=== PATIENT | male | born 1955 | race Caucasian/White ===

== ENCOUNTER → 2018-03-04 11:33 | Outpatient (CLI) | payer BC, SELFPAY ==
[2018-03-05 08:08] LABS: Testosterone,Total 581 ng/dL (264-916)
== END ==
PROVIDERS: Visit Provider Internal Medicine Cardiovascular Disease
DX: R53.83 Other fatigue (principal); I10 Essential (primary) hypertension
CPT/HCPCS: 36415; 84403; 84443

== ENCOUNTER → 2020-04-08 08:18 | Outpatient (CLI) | payer BC, SELFPAY ==
[2020-04-08 08:44] LABS: Basophils % 0.6 % (0.1-2.0); Eosinophils # 0.1 K/mm3 (0.0-0.4); Hemoglobin 15.3 g/dL (14.1-18.0); Lymphocytes # 1.7 K/mm3 (0.7-4.5); Lymphocytes % 25.8 % (10-50); Mean Corpuscular HGB Conc 34.8 g/dL (31.8-35.4); Mean Corpuscular Hemoglobin 30.9 pg (27.0-31.2); Mean Corpuscular Volume 88.8 fl (80-94); Mean Platelet Volume 8.2 fl (7.4-10.4); Monocytes # 0.4 K/mm3 (0.1-1.0); Monocytes % 6.4 % (1.7-9.3); Neutrophils # 4.2 K/mm3 (1.8-7.8); Neutrophils % 65.2 % (37.0-80.0); Platelet Count 172 K/mm3 (142-424); Red Blood Count 4.95 M/mm3 (4.60-6.20); Red Cell Distribution Width 12.7 % (11.5-17.5); White Blood Count 6.5 K/mm3 (4.8-10.8)
[2020-04-08 09:39] LABS: Alanine Aminotransferase 49 U/L (12-78); Albumin Level 4.3 g/dl (3.5-5.0); Albumin/Globulin Ratio 1.7 (1.1-1.8); Alkaline Phosphatase 112 U/L (38-126); Anion Gap 14.2 mEq/L (5-15); Aspartate Amino Transferase 45 U/L (17-59); Bilirubin,Total 1.9 mg/dl (0.2-1.3); Blood Urea Nitrogen 13 mg/dl (9-20); Calcium 9.5 mg/dl (8.4-10.2); Carbon Dioxide 29 mmol/L (22.0-30.0); Chloride 100 mmol/L (98-107); Chol/HDL Ratio 3.6 (1-3.5); Cholesterol 111 mg/dl (140-200); Estimated Glomerular Filt Rate 85 ml/min (>60); GFR (African American) 103 ML/MIN (>60); Globulin 2.6 g/dL (1.3-3.2); Glucose 187 mg/dl (74-100); HDL Cholesterol 31 mg/dl (40-60); Potassium 4.2 mmoL/L (3.5-5.1); Sodium 139 mmol/L (136-145); Total Protein,Serum 6.9 g/dl (6.3-8.2); Triglycerides 139 mg/dl (30-150); VLDL Cholesterol 28 mg/dL (0-40)
[2020-04-08 09:47] LABS: Hemoglobin A1C 8.4 % (4.0-6.0)
[2020-04-08 09:50] LABS: Direct LDL Cholesterol 66.19 mg/dL (100-129)
[2020-04-08 10:09] LABS: Thyroid Stimulating Hormone 1.79 uIU/mL (0.465-4.68)
== END ==
PROVIDERS: Visit Provider Internal Medicine Adolescent Medicine
DX: E11.9 Type 2 diabetes mellitus without complications (principal); E78.5 Hyperlipidemia, unspecified; E03.9 Hypothyroidism, unspecified
CPT/HCPCS: 36415; 80053; 80061; 83036; 84443; 85025

== ENCOUNTER → 2020-05-04 08:47 | Outpatient (CLI) | payer BC, SELFPAY ==
--- NOTE | 2020-05-04 | CA_ITS ---
APPROVED REPORT Technologist: Lucia Ambrose, Ht: 5 ft 8 in Wt: 217 lbs BSA: 2.12 m2 HR: 63 bpm BP: 145/73 mmHg Medical History Medical History: Diabetic ??? Insulin, Hyperlipidemia, HTN Medications: Metoprolol,,,,, Asa,,,,, Metformin,,,,, Lipitor,,,,, Ventolin,,,,, Omepazole,,,,, IsosoBIDEMONO ER,,,,, Cardiac Risk Factors: HTN, Hyperlipidemia, Diabetes (insulin) Stress Test Details Test: Олег HR Resting HR: 69 bpm Max Heart Rate (APMHR): 156 bpm Max HR Achieved: 115 bpm Target HR (85% APMHR): 132 bpm % of APMHR: 73 Recovery HR: 66 bpm BP Resting BP: 145/73 mmHg Max BP: 206/70 mmHg Recovery BP: 206.0/70.0 mmHg ECG Clinical Exercise duration: 06:20 min Highest Stage Achieved: Exercise capacity: 7.0 METs Stress ECG Conclusion Exercised 6:20 on Олег Protocol stopped due to CP and SOB, fatigue. Chest tightness/squeezing, classic for angina, that resolved with in 5 minutes after stopping exercise. Moderately frequent PAC's, occasional PVC's. Exaggeration of baseline T wave abnormalities in leads V1, V2, aVL. In recovery there is 1mm slightly downsloping ST depression in V3 and 0.5mm in V4. (+) GXT by signs and symptoms with equivocal EKG changes. GXT only no imiaging. Electronically signed by : Guido Beltrán, 05/06/2020 07:03:46
== END ==
PROVIDERS: PCP Internal Medicine Adolescent Medicine; Visit Provider Internal Medicine Adolescent Medicine
DX: I25.10 Atherosclerotic heart disease of native coronary artery without angina pectoris (principal)
CPT/HCPCS: 93017

== ENCOUNTER 2020-06-12 19:00 | Observation (INO) | payer BC, SELFPAY ==
[2020-06-12] VITALS (26 sets, daily range): BP systolic 116–152; BP diastolic 49–75; PULSE 47–66; RESP 16–19; TEMP 36.4–36.8; O2SAT 86–98; BMI 32.5; BMI 32.3
--- NOTE | 2020-06-12 | IR_ITS ---
APPROVED REPORT Patient Location: [facility] Director: HUBERT Roy RT (R) PROCEDURES Left femoral arterial access Catheter placement in the right peroneal artery Right peroneal artery selective angiogram Thrombectomy to the right peroneal artery Catheter placement to the anterior tibialis artery Right anterior tibialis artery selective angiogram Thrombectomy to the right anterior tibialis artery Thrombectomy to the posterior tibialis artery Catheter placement in the right popliteal artery Right popliteal artery selective angiogram Right popliteal artery thrombectomy INDICATION Acute thrombus to the right popliteal artery right anterior tibialis artery right posterior tibialis artery and right peroneal artery, Acute leg ischemia Informed consent was obtained prior to the procedure. COMPLICATIONS none Estimated Blood Loss: less than 10 mls TECHNIQUE 1% lidocaine used to anesthetize the left femoral groin. The left femoral artery was accessed via the Seldinger technique. A 4 Egyptian sheath was placed in the left femoral artery and a MONGE catheter was used to intubate the right common iliac artery. The catheter was advanced under fluoroscopic guidance with a wire and selective popliteal artery angiography demonstrated acute thrombosis. Therapeutic heparin was administered and the catheter was exchanged and sheath was exchanged for a 6 Egyptian long destination sheath. A 300 cm 014 wire was placed into the peroneal artery and a CAT 6 was used to remove copious hard blackish red thrombus on several passes. Eventually this was advanced into the posterior tibialis artery where thrombus this was also aspirated. The wire was placed into the anterior tibialis artery where a large thrombus was aspirated as well. Intra popliteal heparin was administered along with 10 cc of Integrilin. 2 different aliquots of 600 mcg nitroglycerin were administered into the anterior tibialis artery and the peroneal artery. After achieving wide patency of all 3 vessels with excellent runoff the apparatus was removed the groin was reprepped gloves were changed sheath was removed good hemostasis was achieved using Perclose patient was transferred to the postop holding in stable condition IMPRESSION Acute thrombosis of the right popliteal artery right anterior tibialis artery right posterior tibialis artery and right peroneal artery Successful thrombectomy of the right popliteal artery right anterior tibialis artery right posterior tibialis artery and right peroneal artery restoring normal antegrade flow to the right foot PLAN 1. Heparin drip overnight 2. Plavix 300 mg now +75 mg daily 3. Risk factor modification for atherosclerotic disease 4. LDL less than 75 Electronically signed by : Jere Singh, 06/12/2020 17:41:17
--- NOTE | 2020-06-12 07:07 | IR_ITS ---
APPROVED REPORT PROCEDURES Left heart catheterization Left ventriculogram Selective coronary angiogram Selective engage in left internal mammary artery with angiography Selective engagement of the saphenous vein graft to the diagonal artery Selective engagement of the saphenous vein graft to the circumflex artery Selective engagement of the saphenous vein graft to the posterior descending artery INDICATION Abnormal stress test, Coronary artery disease, History of coronary bypass surgery Informed consent was obtained prior to the procedure. COMPLICATIONS None Estimated Blood Loss: less than 10ml TECHNIQUE One percent lidocaine used to anesthetize the right groin. The right femoral artery was accessed via the Seldinger technique and a 5 Armenian sheath was placed in the right femoral artery. A JL 4, JR4 catheter were used to perform left heart catheterization, left ventriculogram selective coronary angiography as well as selective engagement of the 2 vein grafts and the left internal mammary artery. At the end of the procedure the patient was transferred to the postop holding area in stable condition for sheath removal. ANGIOGRAPHIC RESULTS The left main artery Is a small vessel with mild 10 to 20% distal stenosis The left anterior descending artery Is proximally occluded The circumflex artery Is proximally occluded The right coronary artery Is a large dominant vessel which is widely patent. Proximally there are 10% stenoses with a mid vessel 10 to 20% stenosis followed by distal 20 and 30% stenoses. The proximal posterior descending artery is occluded The CHE ventriculogram reveals Preserved 60% The left ventricular end-diastolic pressure 10 mmHg Left internal mammary artery is widely patent to a small LAD Saphenous vein graft to the first diagonal artery is widely patent. The first diagonal artery is a small vessel Saphenous vein graft to the circumflex artery has a proximal smooth 20 to 30% stenosis. The circumflex artery is a small vessel Saphenous vein graft to the posterior descending artery is widely patent. There is no retrograde filling of the [place] right coronary artery due to the proximal PDA being occluded IMPRESSION Adequate four-vessel coronary revascularization as described above Preserved ejection fraction Normal left ventricular end-diastolic pressure PLAN 1. Continue medical management Electronically signed by : Jere Singh, 06/12/2020 12:00:13
--- NOTE | 2020-06-12 10:05 | CA_ITS ---
APPROVED REPORT EXAM: Comprehensive 2D, Doppler, and color-flow Echocardiogram Skip Miner Blasting: Flor Omalley RVT Ht: 5 ft 9 in Wt: 220lbs BSA: 2.15 BP: 153/61 mmHg Indications: angina,abn stress,cad,cabg,htn,hld,dm,abn ekg,golden,ex smoker Echo Enhancing Agent Indication: Endocardial border delineation Agent(s) / Amount(s) Used: Definity 2 cc 2D Dimensions LVOT 2.30 cm (M/F) 1.5-2.5 M-Mode Dimensions RVDd 3.62 cm (0.9-2.6) LVDd 5.59 cm (3.5-5.7) LVDs 3.94 cm (3.5-5.7) IVSd 1.39 cm (0.6-1.1) PWd 0.58 cm (0.6-1.1) EF (Teich) 55.90% FS 29.50% EDV (Teich) 153.00 mL ESV (Teich) 67.50 mL LV Diastology E/A Ratio 0.90 Mitral Valve MV A Velocity 76.00 (40-130 cm/s) Left Ventricle Technically difficult study because of the patient factors and poor acoustic windows, Definity contrast was utilized to delineate the endocardial surfaces. Left atrium is mildly enlarged, left ventricle is normal size, mild concentric left ventricular hypertrophy, visually estimated ejection fraction 55% with no regional wall motion abnormality, diastolic parameters are inconclusive. Definity contrast was utilized to delineate the endocardial surfaces, there is no left ventricular thrombus seen. Right Ventricle Right atrium and right ventricle are mildly enlarged with normal contractility. Aortic Valve Aortic valve is thickened and calcified leaflet chordae display good mobility, there is no aortic stenosis or aortic insufficiency. Mitral Valve Mitral valve leaflets are minimally thickened, there is mild mitral regurgitation. Tricuspid Valve Tricuspid valve grossly normal, there is mild tricuspid regurgitation, tricuspid regurgitation jet velocity is inadequate for calculation of the right ventricular systolic pressure. Pulmonic Valve Pulmonic valve is poorly visualized. Great Vessels Aortic root is normal size. Pericardium No significant pericardial effusion noted. Conclusion 1. Mild biatrial enlargement, normal left ventricular size, mild concentric left ventricular hypertrophy, visually estimated ejection fraction 55% with no regional wall motion abnormality, diastolic parameters are inconclusive, Definity contrast was utilized to delineate the endocardial surfaces, there is no left ventricular thrombus seen. 2. Mildly enlarged right ventricle with normal contractility. 3. Mild mitral and tricuspid regurgitation. 4. No significant pericardial effusion noted. Electronically signed by : Oliver Mccracken, 06/12/2020 21:15:41
--- NOTE | 2020-06-12 10:05 | CA_ITS ---
APPROVED REPORT Magazine Keeper: Flor Omalley RVT Laterality: Bilateral Study Quality: Good Indications: bilateral carotid bruits Risk Factors Hypertension: Hyperlipidemia Diabetes Smoking Doppler Spectral Velocity Analysis ECA (R) 166.50/6.20 cm/s ECA (L) 130.40/8.80 cm/s dICA (R) 94.20/22.60 cm/s dICA (L) 86.90/20.20 cm/s Basim (R) 100.10/13.70 cm/s Basim (L) 93.60/12.70 cm/s pICA (R) 83.70/14.10 cm/s pICA (L) 65.90/8.20 cm/s dCCA (R) 60.30/9.30 cm/s dCCA (L) 88.40/7.50 cm/s pCCA (R) 93.30/10.20 cm/s pCCA (L) 105.60/10.50 cm/s Vert (R) 43.30/7.10 cm/s Vert (L) 39.20/8.80 cm/s ICA/CCA 1.66 ICA/CCA 1.06 Findings Study suggests less than 20% stenosis of the right internal cartoid artery. Study suggests 20-49% stenosis of the left internal cartoid artery. Antegrade flow seen bilateral vertebral arteries. Conclusion Study suggests less than 20% stenosis of the right internal cartoid artery. Study suggests 20-49% stenosis of the left internal cartoid artery. Antegrade flow seen bilateral vertebral arteries. Electronically signed by : Bi Farooq MD 06/12/2020 17:16:49
[2020-06-12 10:14] LABS: Basophils % 0.6 % (0.1-2.0); Eosinophils # 0.2 K/mm3 (0.0-0.4); Eosinophils % 2.8 % (0.1-12.0); Hematocrit 41.2 % (42.0-52.0); Hemoglobin 14.3 g/dL (14.1-18.0); Lymphocytes % 27.5 % (10-50); Mean Corpuscular HGB Conc 34.9 g/dL (31.8-35.4); Mean Corpuscular Hemoglobin 31.2 pg (27.0-31.2); Mean Corpuscular Volume 89.5 fl (80-94); Mean Platelet Volume 8.5 fl (7.4-10.4); Monocytes # 0.4 K/mm3 (0.1-1.0); Neutrophils # 4.6 K/mm3 (1.8-7.8); Platelet Count 190 K/mm3 (142-424); Red Cell Distribution Width 12.8 % (11.5-17.5); White Blood Count 7.3 K/mm3 (4.8-10.8)
[2020-06-12 10:23] LABS: Anion Gap 12.6 mEq/L (5-15); Blood Urea Nitrogen 14 mg/dl (9-20); Carbon Dioxide 29 mmol/L (22.0-30.0); Chloride 102 mmol/L (98-107); Creatinine Clearance Estimated 105 mL/min (50-200); Estimated Glomerular Filt Rate 85 ml/min (>60); GFR (African American) 103 ML/MIN (>60); Glucose 152 mg/dl (74-100); Potassium 3.6 mmoL/L (3.5-5.1); Sodium 140 mmol/L (136-145)
[2020-06-12 10:49] LABS: Coronavirus 19 IgG Antibody Negative (Negative); Coronavirus 19 IgM Antibody Negative (Negative)
--- NOTE | 2020-06-12 15:48 | SUR.PHASEII ---
Patient was being prepped for discharge at approximately 1500. Per protocol, patient was walked before discharge to check for any issues with femoral access post procedure. Patient tolerated walking well, however, he began complaining of severe leg pain in right leg. Nurse checked for dp pulse and was not able to palpate, used doppler for further verification, still not able to locate pulse. Asked to assess patient, at which time it was determined to check patient for blockages via angiogram.
[2020-06-12 18:20] LABS: CATHL Activated Clotting Time 265 SEC (74-125)
[2020-06-12 18:20] LABS: CATHL Activated Clotting Time > 400 SEC (74-125)
[2020-06-12 18:36] LABS: INR 1.13 (0.9-1.1); Prothrombin Time 12.4 seconds (9.4-11.8)
--- NOTE | 2020-06-12 20:20 | PC.NURSE ---
Heparin gtt discontinued per MD Singh.
--- NOTE | 2020-06-12 20:44 | PC.NURSE ---
WHEN PT ARRIVED TO THE FLOOR 1+ PEDAL PULSES WERE PALPATED BY 2 DIFFERENT RN'S. AROUND 1914 PT STARTED TO COMPLAIN OF DISCOMFORT ON THE BACK OG HIS RT CALF. PT STATED IT FEELS LIKE A REALLY BAD [place] HORSE PT STATED THAT WAS THE PAIN HE HAD BEFORE BUT BEFORE IT WAS THE ENTIRE AREA OF THE RT CALF BUT THIS TIME IT HURTS IN THE ONE AREA ON THE BACK OF THE CALF. PT HAD A SMALL PALPABLE TENDER KNOT NOTED AT THE BACK OF THE CALF. UNABLE TO PALPATE PEDAL PULSES AT THIS TIME. PULSES WERE OBTAINED WITH DOPPLER BUT WERE VERY FAINT. BOTH EXTREMITIES WARM TO TOUCH WITH NO DISCOLORATION. NOTIFIED AND HE STATED TO TURN OFF THE HEPARIN DRIP AND TO CONTINUE MONITORING BLE. STATED PT CAN HAVE MORPHINE FOR PAIN. HEPARIN DRIP WAS TURNED OFF. VSS. BLE ARE STILL WARM. PT WAS MEDICATED WITH MORPHINE FOR THE PAIN. REPORT HAND OFF TO GENESIS LARKIN RN.
[2020-06-13] VITALS (7 sets, daily range): BP systolic 128–158; BP diastolic 66–80; PULSE 50–70; RESP 16–18; TEMP 36.4–36.9; O2SAT 97
--- NOTE | 2020-06-13 | CA_ITS ---
APPROVED REPORT Hhas: MONICA Laterality: Right Indications: Patient had heart cath with cardiac stents 06/12/20. When patient got up to use the restroom he had extreme pain and pallor of the right leg and foot. Patient was emergently taken to director of cath lab and was found have an arterial clot with thrombectomy performed on right CHAR, VALENTINO, ESTATE AGENT, JULIO. Duplex scanning ordered today to confirm flow and waveforms in RLE. 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 Color flow detected in most arterial vessels scanned with waveforms detected and measured with the exception of the distal peroneal artery. No visualization of acute thrombosis seen on todays scan. Conclusion 30-49% stenosis seen in the proximal femoral artery and common femoral artery. Color flow detected in most arterial vessels scanned with waveforms detected and measured with the exception of the distal peroneal artery. No visualization of acute thrombosis seen on todays scan. Electronically signed by : Bi Farooq MD 06/13/2020 17:45:26
--- NOTE | 2020-06-13 05:26 | PC.NURSE ---
Pt is currently resting in bed. Has ambulated to BR x1 this shift. Pt continues to have discomfort to RLE. Pain medication administered per nov x1 this shift. Pt declines any additional medicine this am. Pt describes pain as a stretching or pulling. Pt also states that it will hurt when he tries to stretch his leg or when he moves it up and down. Pedal pulses per doppler. Extremities warm. VS have remained stable. No other concerns at this time. Will continue to monitor.
[2020-06-13 07:00] LABS: Chloride 103 mmol/L (98-107); Sodium 139 mmol/L (136-145)
[2020-06-13 07:03] LABS: Blood Urea Nitrogen 12 mg/dl (9-20)
[2020-06-13 07:04] LABS: Calcium 8.3 mg/dl (8.4-10.2); Carbon Dioxide 32 mmol/L (22.0-30.0); Creatinine Clearance Estimated 105 mL/min (50-200); Estimated Glomerular Filt Rate 75 ml/min (>60); GFR (African American) 91 ML/MIN (>60); Glucose 97 mg/dl (74-100)
--- NOTE | 2020-06-13 07:31 | P.CONPHA_ITS ---
[facility] Pharmacy VTE Monitoring - Patient Demographics Admission date: 06/13/20 Report Date: 06/13/20 Time: 07:31 Allergies/Adverse Reactions: Patient Allergies ibuprofen Allergy (Intermediate, Verified 06/08/20 13:52) I-ITCHING, SKIN TURNS RED Penicillins Allergy (Intermediate, Verified 06/08/20 13:52) I-RASH Height: 1.75 m Weight: 99 kg - VTE Risk Labs: VTE Related Lab Results Hgb 14.3 g/dL (14.1-18.0) 06/12/20 09:55 Hct 40.8 % (42.0-52.0) L 06/13/20 06:13 Plt Count 113 K/mm3 (142-424) L D 06/13/20 06:13 PT 12.4 seconds (9.4-11.8) H 06/12/20 17:38 INR 1.13 (0.9-1.1) H 06/12/20 17:38 APTT 150.0 seconds (23.6-34.0) H* 06/12/20 17:38 BUN 12 mg/dl (9-20) 06/13/20 06:13 Creatinine 1.00 mg/dl (0.66-1.25) 06/13/20 06:13 Estimated Creat Clear 105 mL/min (50-200) 06/13/20 06:13 Was VTE Risk Assessment Performed: Yes VTE Score: 2 VTE Risk Level: Low Risk Clinical Trial Participant: No - Prophylaxis VTE Prophylaxis Ordered?: Yes Types of VTE Prophylaxis: TEDS Knee High Location of Applied Device: Not Applicable
[2020-06-13 07:59] LABS: Hematocrit 35.6 % (42.0-52.0)
[2020-06-13 08:00] LABS: Mean Corpuscular Volume 89.2 fl (80-94); Mean Platelet Volume 8.3 fl (7.4-10.4); Platelet Count 152 K/mm3 (142-424); Red Cell Distribution Width 12.7 % (11.5-17.5)
--- NOTE | 2020-06-13 08:00 | HMH.HP ---
*Admission Date: 06/12/20 *Chief complaint: Right femoral artery thrombus sequela *History of present illness: 64-year-old white male with known coronary disease who presented to the hospital for outpatient left heart catheterization yesterday. This was accomplished by a right femoral approach because of the patient's prior history of bypass, and the procedure was uneventful, please see cardiology notes for details of the results of the catheterization. However, immediately after the procedure when patient got up from the catheterization table to walk around he had intense pain, pallor, pulselessness in the right leg and was immediately taken back to the catheterization suite where he was found to have a fairly large femoral artery thrombus, possibly from pressure held after the initial catheterization stick. This was diagnosed about by left femoral artery catheterization and thrombectomy was done successfully with good flow restored. Patient was given Integrilin and Plavix in the cath suite and transferred to the floor for heparinization overnight. [facility] History I have reviewed the patient's past medical history: Yes Medical History: Reports:: Coronary Artery Disease, Diabetes Mellitus Type 2, Hyperlipidemia, Hypertension Denies:: Cancer, Diabetes Mellitus Type 1, Internal Pacemaker, MRSA, Seizures *Have you ever received a pneumonia vaccine?: No *Have you received a flu vaccine this season?: Yes Other Surgeries: Yes: CABG, Cholecystectomy, Colonoscopy. No: Pacemaker Amputation: No Fractures: No - *Social History Last grade of school completed: High school graduate Smoking Status: Never smoker Alcohol Intake: never Substance Use Type: denies use *Occupational Status:: employed Housing: house Household Members: spouse *Travel in the last 8 weeks: None Family Hx:: No significant family history Review of Systems - Review of Systems Review of systems:: pertinent systems reviewed and negative unless documented below Patient denies cardiac or pulmonary symptoms or GI symptoms. Continues to have pain in the leg especially in the foot, slightly worse than baseline. Meds Home Medications Medication Instructions Recorded Confirmed Type albuterol sulfate 90 mcg/actuation 2 puff INHALATION Q4-6H PRN 06/08/20 06/08/20 History aerosol inhaler aspirin 81 mg tablet,delayed 81 mg PO DAILY 06/08/20 06/08/20 History release atorvastatin 40 mg tablet 40 mg PO QHS 06/08/20 06/08/20 History metformin 1,000 mg tablet 1,000 mg PO BID 06/08/20 06/08/20 History Isosorbide Mononitrate [Isosorbide 120 mg PO DAILY 06/12/20 History Mononitrate ER] Losartan Potassium [Cozaar 25mg 25 mg PO DAILY 06/12/20 History Tablets] Metoprolol Succinate [Metoprolol 50 mg PO DAILY 06/12/20 History Succinate 50mg Tablet*] Pantoprazole Sodium 40 mg PO DAILY 06/12/20 History Allergies Allergy/AdvReac Type Severity Reaction Status Date / Time ibuprofen Allergy Intermediate I-ITCHING, Verified 06/08/20 13:52 SKIN TURNS RED Penicillins Allergy Intermediate I-RASH Verified 06/08/20 13:52 Exam Vital signs and Labs for Last 24 Hours: Temp Pulse Resp BP Pulse Ox 97.6 F 60 16 128/70 97 06/13/20 04:00 06/13/20 04:00 06/13/20 04:00 06/13/20 04:00 06/13/20 04:00 Laboratory Results - last 24 hr 06/12/20 09:55: WBC 7.3, RBC 4.60, Hgb 14.3, Hct 41.2 L, MCV 89.5, MCH 31.2, MCHC 34.9, RDW 12.8, Plt Count 190, MPV 8.5, Neut % (Auto) 63.0, Lymph % (Auto) 27.5, Brown % (Auto) 6.0, Eos % (Auto) 2.8, Baso % (Auto) 0.6, Neut # (Auto) 4.6, Lymph # (Auto) 2.0, Brown # (Auto) 0.4, Eos # (Auto) 0.2, Baso # (Auto) 0.0 06/12/20 09:55: Sodium 140, Potassium 3.6, Chloride 102, Carbon Dioxide 29, Anion Gap 12.6, BUN 14, Creatinine 0.90, Estimated Creat Clear 105, Estimated GFR 85, Est GFR ( Amer) 103, Glucose 152 H, Calcium 9.0 06/12/20 09:55: SARS-CoV-2 IgG Ab (Rapid) Negative, SARS-CoV-2 IgM Ab (Rapid) Negative 06/12/20 16:
[2020-06-13 08:01] LABS: Basophils % 0.5 % (0.1-2.0); Eosinophils % 2.7 % (0.1-12.0); Lymphocytes % 29.9 % (10-50); Monocytes % 8.3 % (1.7-9.3); Neutrophils # 3.3 K/mm3 (1.8-7.8); Neutrophils % 58.6 % (37.0-80.0)
[2020-06-13 08:02] LABS: Eosinophils # 0.2 K/mm3 (0.0-0.4); Lymphocytes # 1.7 K/mm3 (0.7-4.5); Monocytes # 0.5 K/mm3 (0.1-1.0)
[2020-06-13 08:39] LABS: Hemoglobin 12.1 g/dL (14.1-18.0); Mean Corpuscular Hemoglobin 30.3 pg (27.0-31.2); Red Blood Count 3.99 M/mm3 (4.60-6.20); White Blood Count 5.6 K/mm3 (4.8-10.8)
--- NOTE | 2020-06-13 09:42 | PC.NURSE ---
Manual BP in right arm is 158/80. Bilateral pedal and PT pulses palpated manually.
--- NOTE | 2020-06-13 10:36 | HMH.CNCARD ---
History of Present Illness Consult date: 06/13/20 Requesting physician: Guido Beltrán Chief complaint: right leg pain Additional Medical History:: 1. Coronary artery disease A. History of CABG, 2009 B. Abnormal stress test, 06/2020 with reproduction of symptoms C. [facility], 06/12/2020, ANGIOGRAPHIC RESULTS The left main artery Is a small vessel with mild 10 to 20% distal stenosis The left anterior descending artery Is proximally occluded The circumflex artery Is proximally occluded The right coronary artery Is a large dominant vessel which is widely patent. Proximally there are 10% stenoses with a mid vessel 10 to 20% stenosis followed by distal 20 and 30% stenoses. The proximal posterior descending artery is occluded The CHE ventriculogram reveals Preserved 60% The left ventricular end-diastolic pressure 10 mmHg Left internal mammary artery is widely patent to a small LAD Saphenous vein graft to the first diagonal artery is widely patent. The first diagonal artery is a small vessel Saphenous vein graft to the circumflex artery has a proximal smooth 20 to 30% stenosis. The circumflex artery is a small vessel Saphenous vein graft to the posterior descending artery is widely patent. There is no retrograde filling of the [place] right coronary artery due to the proximal PDA being occluded IMPRESSION Adequate four-vessel coronary revascularization as described above Preserved ejection fraction Normal left ventricular end-diastolic pressure PLAN 1. Continue medical management 2. Acute thrombosis of RLE after right femoral access for [facility] A. LE angiogram, 06/12/2020, IMPRESSION Acute thrombosis of the right popliteal artery right anterior tibialis artery right posterior tibialis artery and right peroneal artery Successful thrombectomy of the right popliteal artery right anterior tibialis artery right posterior tibialis artery and right peroneal artery restoring normal antegrade flow to the right foot PLAN 1. Heparin drip overnight 2. Plavix 300 mg now +75 mg daily 3. Risk factor modification for atherosclerotic disease 4. LDL less than 75 Electronically signed by : Jere Singh, 06/12/2020 17:41:17 3. Diabetes mellitus, diagnosed approximately 2015 A. Hemoglobin A1c, 8.4, 2019 4. Remote tobacco use discontinued approximately 2007 5. Hypertension 6. Hyperlipidemia 7. Abnormal EKG with right bundle branch block and left anterior fascicular block, 2019 History of present illness: 64-year-old white male who is here yesterday for an outpatient left heart catheterization via right femoral access was subsequently admitted after developing a right lower extremity thrombus felt related to manual hold of right femoral artery post procedure. Urgent lower extremity angiogram was performed with thrombectomy and zoroastrian of arterial flow noted thereafter. He was given Integrilin, Plavix and heparin overnight. Patient continues to have some right lower extremity discomfort this morning but has appreciable distal pulses that are equal with slight temperature difference in the right foot versus the left. Right and left femoral access sites appear without evidence of bleeding or pseudoaneurysm by palpation. Patient denies any chest pain, pressure or tightness. [facility] History Medical History: Reports:: Coronary Artery Disease, Diabetes Mellitus Type 2, Hyperlipidemia, Hypertension Denies:: Cancer, Diabetes Mellitus Type 1, Internal Pacemaker, MRSA, Seizures *Have you ever received a pneumonia vaccine?: No *Have you received a flu vaccine this season?: Yes Other Surgeries: Yes: CABG, Cholecystectomy, Colonoscopy. No: Pacemaker Amputation: No Fractures: No - *Social History Last grade of school completed: High school graduate Smoking Status: Never smoker Alcohol Intake: never Substance Use Type: denies use *Occupational Status:: employed Housing: house Household Members: spouse *Travel in the
--- NOTE | 2020-06-13 11:34 | PC.NURSE ---
bilateral pedal and PT pulses palpated manually. They seem stronger and easier to palpate than this morning. Pt continues to report mild pain when I palpate posterior calf muscle. Denies the need for pain med at this time.
--- NOTE | 2020-06-13 14:09 | HMH.DCSUM ---
General - General Admission date:: 06/12/20 Discharge date: 06/13/20 HPI HPI: 64-year-old white male with known coronary disease who presented to the hospital for outpatient left heart catheterization yesterday. This was accomplished by a right femoral approach because of the patient's prior history of bypass, and the procedure was uneventful, please see cardiology notes for details of the results of the catheterization. However, immediately after the procedure when patient got up from the catheterization table to walk around he had intense pain, pallor, pulselessness in the right leg and was immediately taken back to the catheterization suite where he was found to have a fairly large femoral artery thrombus, possibly from pressure held after the initial catheterization stick. This was diagnosed about by left femoral artery catheterization and thrombectomy was done successfully with good flow restored. Patient was given Integrilin and Plavix in the cath suite and transferred to the floor for heparinization overnight. Hospital Course Hospital Course: Patient was admitted - did well... less pain the next am.. normal dopplers... cleared by cardiology for dc as noted.. Objective Vital signs: Temp Pulse Resp BP Pulse Ox 98.5 F 60 16 137/78 97 06/13/20 12:16 06/13/20 12:16 06/13/20 12:16 06/13/20 12:16 06/13/20 12:16 no acute distress - *Routine HEENT Exam Head: Present: normocephalic Eye: Present: EOMI, PERRL ENT: Present: mucous membranes moist - *Routine Neck Exam Present: supple - *Routine Respiratory Exam Present: CTA bilaterally - *Routine Cardiovascular Exam Present: RRR - *Routine Abdominal Exam Present: soft, normoactive bowel sounds. Absent: tenderness - *Routine Extremities Exam Absent: cyanosis, clubbing, edema Comments: unchanged from prior exam - *Routine Skin Exam Present: warm. Absent: rash - Detailed Eye Exam Eyelids: Bilateral normal inspection Results Labs on day of discharge: Labs from last 24 hours 06/13/20 06/13/20 06/12/20 06:13 06:13 17:38 WBC 5.6 RBC 3.99 L Hgb 12.1 L D Hct 35.6 L MCV 89.2 MCH 30.3 MCHC 34.0 RDW 12.7 Plt Count 152 MPV 8.3 Neut % (Auto) 58.6 Lymph % (Auto) 29.9 Jewell % (Auto) 8.3 Eos % (Auto) 2.7 Baso % (Auto) 0.5 Neut # (Auto) 3.3 Lymph # (Auto) 1.7 Jewell # (Auto) 0.5 Eos # (Auto) 0.2 Baso # (Auto) 0.0 PT 12.4 H INR 1.13 H APTT 150.0 H* Activated Clotting Time Sodium 139 Potassium 4.0 Chloride 103 Carbon Dioxide 32 H Anion Gap 8.0 BUN 12 Creatinine 1.00 Estimated Creat Clear 105 Estimated GFR 75 Est GFR ( Amer) 91 Glucose 97 D Calcium 8.3 L 06/12/20 06/12/20 17:15 16:35 WBC RBC Hgb Hct MCV MCH MCHC RDW Plt Count MPV Neut % (Auto) Lymph % (Auto) Jewell % (Auto) Eos % (Auto) Baso % (Auto) Neut # (Auto) Lymph # (Auto) Jewell # (Auto) Eos # (Auto) Baso # (Auto) PT INR APTT Activated Clotting Time > 400 H* D 265 H* Sodium Potassium Chloride Carbon Dioxide Anion Gap BUN Creatinine Estimated Creat Clear Estimated GFR Est GFR ( Amer) Glucose Calcium DS: Diagnosis - Discharge Diagnosis (1) Thrombosis of right femoral artery Status: Resolved Discharge Plan - Patient Discharge Instructions ACTIVITY: Continue current activity DIET: continue same diet - Follow up Plan Follow up with: Jere Singh MD [Staff Physician] - Disposition: Home, Self-Nursing Home Medications: Home Medications Medication Instructions Recorded Confirmed Type albuterol sulfate 90 mcg/actuation 2 puff INHALATION Q4-6H PRN 06/08/20 06/13/20 History aerosol inhaler aspirin 81 mg tablet,delayed 81 mg PO DAILY 06/08/20 06/13/20 History release atorvastatin 40 mg tablet 40 mg PO QH
== END 2020-06-13 15:31 | disposition home or self-care (01) ==
PROVIDERS: Internal Medicine; Admitting Provider Internal Medicine Adolescent Medicine; PCP Internal Medicine Adolescent Medicine; Visit Provider Internal Medicine Adolescent Medicine
DX: T81.718A Complication of other artery following a procedure, not elsewhere classified, initial encounter (principal); I74.3 Embolism and thrombosis of arteries of the lower extremities; I25.708 Atherosclerosis of coronary artery bypass graft(s), unspecified, with other forms of angina pectoris; I25.118 Atherosclerotic heart disease of native coronary artery with other forms of angina pectoris; E11.69 Type 2 diabetes mellitus with other specified complication; E78.5 Hyperlipidemia, unspecified; Z79.84 Long term (current) use of oral hypoglycemic drugs; I10 Essential (primary) hypertension; Z79.52 Long term (current) use of systemic steroids; Z79.82 Long term (current) use of aspirin; Z95.1 Presence of aortocoronary bypass graft
CPT/HCPCS: 36415; 37184; 37185; 80048; 85025; 85347; 85610; 85730; 86328; 93306; 93459; 93880; 93926; 99152; 99153; C1725; C1760; C1766; C1769; C1894; G0378; J1327; J1644; Q9957; Q9967

== ENCOUNTER → 2020-06-22 14:56 | Outpatient (CLI) | payer BC, SELFPAY ==
--- NOTE | 2020-06-22 14:58 | CA_ITS ---
APPROVED REPORT Right Lower Extremity Venous Study for DVT. Chief Communications Officer: MONICA Indications Lower Extremity Pain: Right CAD right leg pain. Patient had a heart cath 06/12/20 with right groin access. He states when he got up to use restroom that evening he had extreme pain. Patient was rushed to [facility] with arterial clots seen and thrombectomy performed on CHAR, VALENTINO, [employer], JULIO. Having RLE pain now. Medications Plavix Vein Imaging CFV (R): compressive, spontaneous, phasic, augmentation FEM (R): compressive, spontaneous, phasic, augmentation POP (R): compressive, spontaneous, phasic, augmentation PTV (R): Compressible GSV (R): compressive, spontaneous, phasic, augmentation SSV (R): Compressible Peroneals (R):Compressible GAS (R): Compressible Findings No evidence of DVT or superficial thrombophlebitis in the veins scanned of the right lower extremity. Conclusion No evidence of DVT or superficial thrombophlebitis in the veins scanned of the right lower extremity. Electronically signed by : Bi Farooq MD 06/27/2020 09:12:10
== END ==
PROVIDERS: PCP Internal Medicine Adolescent Medicine; Visit Provider Internal Medicine Cardiovascular Disease
DX: M79.604 Pain in right leg (principal); R06.00 Dyspnea, unspecified; R94.31 Abnormal electrocardiogram [ECG] [EKG]; E11.9 Type 2 diabetes mellitus without complications; E78.5 Hyperlipidemia, unspecified; I10 Essential (primary) hypertension; I25.10 Atherosclerotic heart disease of native coronary artery without angina pectoris; Z87.891 Personal history of nicotine dependence; Z95.1 Presence of aortocoronary bypass graft
CPT/HCPCS: 93971

== ENCOUNTER → 2020-11-02 14:52 | Outpatient (CLI) | payer BC, SELFPAY ==
--- NOTE | 2020-11-02 15:01 | XR_ITS ---
PROCEDURE: XR SHOULDER LT MIN 2V CLINICAL INDICATION: ACUTE PAIN OF LT SHOULDER COMPARISON: No exams were available for comparison FINDINGS: No fracture or dislocation. No lytic or blastic change. There is normal mineralization. There are mild osteoarthritic changes of the acromioclavicular joint and glenohumeral joint. No significant subacromial stenosis. Other findings:None. IMPRESSION: Mild osteoarthritis Dictated by: Bi Farooq MD 11/02/2020 15:30 Bi Farooq MD in [place] 11/02/2020 15:30
== END ==
PROVIDERS: PCP Internal Medicine Adolescent Medicine; Visit Provider Internal Medicine Adolescent Medicine
DX: M25.512 Pain in left shoulder (principal)
CPT/HCPCS: 73030

== ENCOUNTER → 2020-12-23 11:10 | Outpatient (CLI) | payer BC, SELFPAY ==
[2020-12-23 12:25] LABS: Hemoglobin A1C 7.9 % (4.0-6.0)
[2020-12-23 13:08] LABS: Alanine Aminotransferase 22 U/L (12-78); Albumin Level 4.2 g/dl (3.5-5.0); Albumin/Globulin Ratio 1.7 (1.1-1.8); Alkaline Phosphatase 91 U/L (38-126); Anion Gap 14.9 mEq/L (5-15); Aspartate Amino Transferase 27 U/L (17-59); Bilirubin,Total 1.2 mg/dl (0.2-1.3); Blood Urea Nitrogen 14 mg/dl (9-20); Calcium 9.6 mg/dl (8.4-10.2); Carbon Dioxide 25 mmol/L (22.0-30.0); Chloride 105 mmol/L (98-107); Estimated Glomerular Filt Rate 85 ml/min (>60); GFR (African American) 102 ML/MIN (>60); Globulin 2.5 g/dL (1.3-3.2); Glucose 182 mg/dl (74-100); Potassium 3.9 mmoL/L (3.5-5.1); Sodium 141 mmol/L (136-145); Total Protein,Serum 6.7 g/dl (6.3-8.2); Uric Acid 6.2 mg/dl (3.5-8.5)
[2020-12-23 13:39] LABS: Thyroid Stimulating Hormone 0.55 uIU/mL (0.465-4.68)
== END ==
PROVIDERS: Visit Provider Internal Medicine Adolescent Medicine
DX: E11.9 Type 2 diabetes mellitus without complications (principal); E03.9 Hypothyroidism, unspecified; M25.50 Pain in unspecified joint; Z79.84 Long term (current) use of oral hypoglycemic drugs
CPT/HCPCS: 36415; 80053; 83036; 84443; 84550

== ENCOUNTER → 2021-01-08 08:55 | Outpatient (CLI) | payer BC, SELFPAY ==
--- NOTE | 2021-01-08 09:03 | XR_ITS ---
PROCEDURE: XR WRIST LT MIN 3V CLINICAL INDICATION: BL wrist pain COMPARISON: No exams were available for comparison FINDINGS: No fracture or dislocation. No lytic or blastic change. There is normal mineralization. The joint spaces are well-preserved. No significant degenerative/arthritic changes. No erosive changes evident. Other findings:None. IMPRESSION: No acute findings. Dictated by: Bi Farooq MD 01/08/2021 10:27 Bi Farooq MD in [place] 01/08/2021 10:27
--- NOTE | 2021-01-08 09:03 | XR_ITS ---
PROCEDURE: XR WRIST RT MIN 3V CLINICAL INDICATION: BL wrist pain COMPARISON: No exams were available for comparison FINDINGS: No fracture or dislocation. No lytic or blastic change. There is normal mineralization. The joint spaces are well-preserved. No significant degenerative/arthritic changes. No erosive changes evident. Other findings:None. IMPRESSION: No acute findings. Dictated by: Bi Farooq MD 01/08/2021 10:27 Bi Farooq MD in [place] 01/08/2021 10:27
--- NOTE | 2021-01-08 10:56 | XR_ITS ---
PROCEDURE: XR HAND RT MIN 3V CLINICAL INDICATION: BL hand pain COMPARISON: No exams were available for comparison FINDINGS: No fracture or dislocation. No lytic or blastic change. There is normal mineralization. Mild osteoarthritic change at the 1st interphalangeal joint, the 3rd PIP joint and the 2nd DIP joint. Other findings:Small cystic area at 2-3 mm is present at the proximal and ulnar aspect of the middle phalanx of the 3rd finger. IMPRESSION: Mild osteoarthritic changes Dictated by: Bi Farooq MD 01/08/2021 11:46 Bi Farooq MD in [place] 01/08/2021 11:46
--- NOTE | 2021-01-08 10:56 | XR_ITS ---
PROCEDURE: XR HAND LT MIN 3V CLINICAL INDICATION: BL hand pain COMPARISON: No exams were available for comparison FINDINGS: No fracture or dislocation. No lytic or blastic change. There is normal mineralization. There are mild osteoarthritic changes at the PIP joint of the 2nd through 5th fingers and the DIP joint the 2nd and 3rd finger. Small cystic areas present at the proximal and radial aspect of the middle phalanx of the 5th finger. Other findings:None. IMPRESSION: Mild osteoarthritis of the fingers Dictated by: Bi Farooq MD 01/08/2021 11:45 Bi Farooq MD in [place] 01/08/2021 11:45
--- NOTE | 2021-01-08 12:05 | XR_ITS ---
PROCEDURE: XR CHEST 2V CLINICAL HISTORY: ACUTE BRONCHOPNEUMONIA COMPARISON: No exams were available for comparison FINDINGS: Prior CABG. Normal heart size. Calcified granuloma is present in the right middle lobe No acute bony abnormalities. IMPRESSION: No acute findings. Dictated by: Bi Farooq MD 01/08/2021 16:13 Bi Farooq MD in [place] 01/08/2021 16:13
== END ==
PROVIDERS: PCP Internal Medicine Adolescent Medicine; Visit Provider Orthopaedic Surgery
DX: M25.531 Pain in right wrist (principal); M25.532 Pain in left wrist; M79.641 Pain in right hand; M79.642 Pain in left hand
CPT/HCPCS: 71046; 73110; 73130

== ENCOUNTER → 2021-01-08 11:13 | Outpatient (CLI) | payer BC, SELFPAY ==
[2021-01-08 12:26] LABS: C-Reactive Protein 12.2 mg/L (0-4)
[2021-01-08 12:28] LABS: Erythrocyte Sedimentation Rate 117 mm/hr (0-20)
[2021-01-09 15:33] LABS: Anti-Centromere B Antibodies <0.2 AI (0.0-0.9); Anti-Jo-1 <0.2 AI (0.0-0.9); Anti-Smith Antibody <0.2 AI (0.0-0.9); Antichromatin Antibodies <0.2 AI (0.0-0.9); Antiscleroderma-70 Antibodies <0.2 AI (0.0-0.9); RNP Antibodies 0.3 AI (0.0-0.9); Sjogren's Anti-SS-A <0.2 AI (0.0-0.9); Sjogren's Anti-SS-B <0.2 AI (0.0-0.9)
[2021-01-11 12:44] LABS: Anti-DNA (DS) Ab Qn <1 IU/mL (0-9)
== END ==
PROVIDERS: Visit Provider Orthopaedic Surgery
DX: M25.50 Pain in unspecified joint (principal); M79.642 Pain in left hand; M79.641 Pain in right hand
CPT/HCPCS: 36415; 85651; 86140; 86225; 86235; 86431

== ENCOUNTER → 2021-03-10 11:09 | Outpatient (CLI) | payer BC, SELFPAY ==
--- NOTE | 2021-03-10 11:14 | XR_ITS ---
PROCEDURE INFORMATION: Exam: XR Right Ankle Exam date and time: 03/10/2021 11:14 AM Age: 65 years old Clinical indication: Swelling, leg or foot; Patient HX: PT C/O RT lateral ankle swelliing with no known injury or trauma; Additional info: Swelling anterior to the lateral malleolus TECHNIQUE: Imaging protocol: XR Right ankle. Views: 3 or more views. COMPARISON: No relevant prior study is available. FINDINGS: Bones/joints: There is no acute fracture or dislocation. No aggressive bone lesions are present. There are small dorsal and minimal plantar calcaneal enthesophytes. A well-corticated osteochondral body adjacent to the tip of the medial malleolus is consistent with a remote unhealed fracture fragment. A mild effusion involves the ankle joint. Soft tissues: Surgical clips are present in the lower leg soft tissues. Soft tissue swelling along the anterior ankle is nonspecific. IMPRESSION: 1. Nonspecific soft tissue swelling along the anterior ankle. 2. No fracture.
== END ==
PROVIDERS: PCP Nurse Practitioner Family; Visit Provider Nurse Practitioner Family
DX: M25.471 Effusion, right ankle (principal)
CPT/HCPCS: 73610

== ENCOUNTER → 2021-03-29 16:36 | Outpatient (CLI) | payer BC, SELFPAY ==
[2021-03-29 16:52] LABS: Basophils % 0.6 % (0.1-2.0); Eosinophils # 0.2 K/mm3 (0.0-0.4); Eosinophils % 3.2 % (0.1-12.0); Hematocrit 39.1 % (42.0-52.0); Hemoglobin 13.3 g/dL (14.1-18.0); Lymphocytes # 1.7 K/mm3 (0.7-4.5); Lymphocytes % 29.9 % (10-50); Mean Corpuscular Hemoglobin 29.7 pg (27.0-31.2); Mean Corpuscular Volume 87.2 fl (80-94); Mean Platelet Volume 8.9 fl (7.4-10.4); Monocytes # 0.4 K/mm3 (0.1-1.0); Monocytes % 6.7 % (1.7-9.3); Neutrophils # 3.4 K/mm3 (1.8-7.8); Neutrophils % 59.6 % (37.0-80.0); Platelet Count 184 K/mm3 (142-424); Red Blood Count 4.48 M/mm3 (4.60-6.20); Red Cell Distribution Width 15.4 % (11.5-17.5); White Blood Count 5.7 K/mm3 (4.8-10.8)
[2021-03-29 17:57] LABS: Chloride 103 mmol/L (98-107); Sodium 141 mmol/L (136-145)
[2021-03-29 17:59] LABS: Blood Urea Nitrogen 10 mg/dl (9-20); Estimated Glomerular Filt Rate 85 ml/min (>60); GFR (African American) 102 ML/MIN (>60)
[2021-03-29 18:00] LABS: Alanine Aminotransferase 21 U/L (12-78); Albumin Level 4.2 g/dl (3.5-5.0); Albumin/Globulin Ratio 1.8 (1.1-1.8); Alkaline Phosphatase 79 U/L (38-126); Aspartate Amino Transferase 26 U/L (17-59); Bilirubin,Total 1.3 mg/dl (0.2-1.3); Carbon Dioxide 29 mmol/L (22.0-30.0); Globulin 2.4 g/dL (1.3-3.2); Total Protein,Serum 6.6 g/dl (6.3-8.2)
[2021-03-29 18:01] LABS: Calcium 8.9 mg/dl (8.4-10.2); Glucose 131 mg/dl (74-100)
== END ==
PROVIDERS: Visit Provider Internal Medicine Adolescent Medicine
DX: M05.79 Rheumatoid arthritis with rheumatoid factor of multiple sites without organ or systems involvement (principal)
CPT/HCPCS: 36415; 80053; 85025

== ENCOUNTER → 2021-06-28 16:54 | Outpatient (CLI) | payer BC, SELFPAY ==
--- NOTE | 2021-06-28 16:58 | XR_ITS ---
PROCEDURE INFORMATION: Exam: XR Entire Spine, 6 or More Views, Scoliosis Exam date and time: 06/28/2021 4:58 PM Age: 65 years old Clinical indication: Pain; Lumbago with sciatica; Left; Additional info: Acute lt sided low back pain w/ lt sided sciatica TECHNIQUE: Imaging protocol: XR of the entire spine. 6 or more views. Evaluation for scoliosis. COMPARISON: CR LS5 LUMBAR SPINE 5 VIEWS 05/31/2017 11:18 AM FINDINGS: Vertebrae: No acute fracture. Moderate degenerative disc disease at L4-L5 and L5-S1. Mild degenerative disc disease throughout the remainder of the lumbar spine. Minimal broad-based levocurvature of the thoracic spine. Minimal dextrocurvature of the lumbar spine centered at L3. ACDF hardware is seen in the lower cervical spine. Heart/Mediastinum: Changes of prior CABG. Intraperitoneal space: Surgical clips in the right upper quadrant. Vasculature: Atherosclerotic calcification of the aorta. Soft tissues: Normal. IMPRESSION: 1. No acute fracture. 2. Minimal broad-based levocurvature of the thoracic spine. Minimal dextrocurvature of the lumbar spine centered at L3. 3. Moderate degenerative disc disease at L4-L5 and L5-S1.
== END ==
PROVIDERS: PCP Internal Medicine Adolescent Medicine; Visit Provider Internal Medicine Adolescent Medicine
DX: M54.42 Lumbago with sciatica, left side (principal)
CPT/HCPCS: 72084

== ENCOUNTER → 2021-11-03 09:47 | Outpatient (CLI) | payer BC, SELFPAY ==
[2021-11-03 10:43] LABS: Basophils % 0.3 % (0.1-2.0); Eosinophils # 0.1 K/mm3 (0.0-0.4); Eosinophils % 1.9 % (0.1-12.0); Hematocrit 42.5 % (42.0-52.0); Hemoglobin 14.5 g/dL (14.1-18.0); Lymphocytes # 1.2 K/mm3 (0.7-4.5); Lymphocytes % 18.8 % (10-50); Mean Corpuscular HGB Conc 34.2 g/dL (31.8-35.4); Mean Corpuscular Hemoglobin 31.3 pg (27.0-31.2); Mean Corpuscular Volume 91.8 fl (80-94); Mean Platelet Volume 8.3 fl (7.4-10.4); Monocytes # 0.4 K/mm3 (0.1-1.0); Monocytes % 6.5 % (1.7-9.3); Neutrophils # 4.5 K/mm3 (1.8-7.8); Neutrophils % 72.5 % (37.0-80.0); Platelet Count 206 K/mm3 (142-424); Red Blood Count 4.64 M/mm3 (4.60-6.20); Red Cell Distribution Width 14.4 % (11.5-17.5); White Blood Count 6.2 K/mm3 (4.8-10.8)
[2021-11-03 11:15] LABS: Alanine Aminotransferase 32 U/L (12-78); Albumin Level 4.4 g/dl (3.5-5.0); Alkaline Phosphatase 83 U/L (38-126); Anion Gap 10.6 mEq/L (5-15); Aspartate Amino Transferase 41 U/L (17-59); Bilirubin,Total 1.7 mg/dl (0.2-1.3); Blood Urea Nitrogen 15 mg/dl (9-20); Calcium 9.1 mg/dl (8.4-10.2); Carbon Dioxide 31 mmol/L (22.0-30.0); Chloride 100 mmol/L (98-107); Chol/HDL Ratio 4.4 (1-3.5); Cholesterol 119 mg/dl (140-200); Estimated Glomerular Filt Rate 75 ml/min (>60); GFR (African American) 90 ML/MIN (>60); Globulin 2.2 g/dL (1.3-3.2); Glucose 144 mg/dl (74-100); HDL Cholesterol 27 mg/dl (40-60); Potassium 4.6 mmoL/L (3.5-5.1); Sodium 137 mmol/L (136-145); Total Protein,Serum 6.6 g/dl (6.3-8.2); Triglycerides 145 mg/dl (30-150); VLDL Cholesterol 29 mg/dL (0-40)
[2021-11-03 11:25] LABS: Direct LDL Cholesterol 75.26 mg/dL (100-129)
[2021-11-03 11:44] LABS: Thyroid Stimulating Hormone 1.17 uIU/mL (0.465-4.68)
[2021-11-03 11:49] LABS: Hemoglobin A1C 7.1 % (4.0-6.0)
[2021-11-03 11:57] LABS: Free Thyroxine Index 2.9 ug/dL (5.93-13.13); T4 (Thyroxine) 7.8 ug/dl (5.53-11.0); Triiodothryronine (T3) Uptake 37 % (23.5-40.5)
== END ==
PROVIDERS: PCP Internal Medicine Adolescent Medicine; Referring Provider Internal Medicine Adolescent Medicine; Visit Provider Internal Medicine Adolescent Medicine
DX: E11.9 Type 2 diabetes mellitus without complications (principal); E03.9 Hypothyroidism, unspecified; Z79.84 Long term (current) use of oral hypoglycemic drugs
CPT/HCPCS: 36415; 80053; 80061; 83036; 84436; 84443; 84479; 85025

== ENCOUNTER 2022-07-29 09:40 | Inpatient (IN) | payer MEDICARE, SELFPAY ==
[2022-07-29] VITALS (14 sets, daily range): BP systolic 150–179; BP diastolic 73–90; PULSE 56–74; RESP 12–20; TEMP 36.6–36.7; O2SAT 96–99; BMI 31.0; BMI 29.8; BMI 29.7
--- NOTE | 2022-07-29 09:50 | XR_ITS ---
FINAL REPORT TECHNIQUE: Single view chest CLINICAL HISTORY: weakness COMPARISON: 01/08/2021 FINDINGS: A single view of the chest was obtained. The heart is enlarged. Patient is status post median sternotomy. Postoperative changes are noted of the lower cervical spine. The lungs are clear. There is no pneumothorax. IMPRESSION: No acute cardiopulmonary process. Reviewed, Interpreted and Dictated by David Graves III, MD Transcribed by Alicia Amos Authenticated and . [facility]
--- NOTE | 2022-07-29 09:50 | CT_ITS ---
FINAL REPORT TECHNIQUE: Thin section axial CT with IV contrast supplemented with multiplanar reconstruction under CT angiogram protocol. This study was performed with techniques to keep radiation doses as low as reasonably achievable (ALARA). Individualized dose reduction techniques using automated exposure control or adjustment of mA and/or kV according to the patient''s size were employed. NASCET criteria was utilized during interpretation. CLINICAL HISTORY: off balance FINDINGS: Aortic arch: Arch shows no significant narrowing. Great vessel origins are widely patent. Right carotid: No significant stenosis is seen of the cervical common or internal carotid artery. Left carotid: There is mild calcified plaque at the left carotid bulb. No significant stenosis is seen of the cervical common or internal carotid artery. Vertebral: Left vertebral artery is dominant. No significant stenosis is present. Visualized lungs demonstrate a ground-glass nodule in the right mid lung measuring 9 mm. IMPRESSION: No significant stenosis or occlusion. 9 mm ground-glass pulmonary nodule. Recommend follow-up chest CT in 6-12 months. Reviewed, Interpreted and Dictated by David Graves III, MD Transcribed by Alicia Amos Authenticated and [facility]
--- NOTE | 2022-07-29 09:50 | CT_ITS ---
FINAL REPORT TECHNIQUE: Thin section axial CT with IV contrast supplemented with multiplanar reconstruction under CT angiogram protocol. 3-D reconstructions were performed. This study was performed with techniques to keep radiation doses as low as reasonably achievable (ALARA). Individualized dose reduction techniques using automated exposure control or adjustment of mA and/or kV according to the patient''s size were employed. CLINICAL HISTORY: off balance, headache FINDINGS: No aneurysm is seen. Major intracranial vessels are patent without significant stenosis. IMPRESSION: Unremarkable exam Reviewed, Interpreted and Dictated by David Graves III, MD Transcribed by Alicia Amos Authenticated and [facility]
--- NOTE | 2022-07-29 09:50 | CT_ITS ---
FINAL REPORT CLINICAL HISTORY: off balance, headache FINDINGS: Axial images of the head were obtained without contrast. Coronal reformatted images were also obtained.This study was performed with techniques to keep radiation doses as low as reasonably achievable (ALARA). Individualized dose reduction techniques using automated exposure control or adjustment of mA and/or kV according to the patient''s size were employed. There is no evidence of intracranial hemorrhage or mass. The ventricular size is within normal limits. There is no evidence of shift of the midline structures. No abnormal extra axial fluid collection is identified. No skull abnormality is seen on the bone window images. IMPRESSION: No acute intracranial abnormality. Reviewed, Interpreted and Dictated by David Graves III, MD Transcribed by Alicia Amos Authenticated and [facility]
--- NOTE | 2022-07-29 09:51 | ECG_ITS ---
APPROVED REPORT Exam: Resting ECG HR:67 bpm ECG Measurements Heart Rate 67 AXES WV 178 P 54 QRSd 140 QRS -67 QT 473 T 76 QTc 488 Conclusion SINUS RHYTHM RIGHT BUNDLE BRANCH BLOCK [120+ ms QRS DURATION, UPRIGHT V1, 40+ ms S IN I/aVL/V4/V5/V6] LEFT ANTERIOR FASCICULAR BLOCK [QRS AXIS <= -45, QR IN I, RS IN II] ABNORMAL ECG UNCONFIRMED REPORT Electronically signed by : Guido Beltrán MD 07/29/2022 19:43:12
--- NOTE | 2022-07-29 09:52 | HMH.EDGENADL ---
Discharge Plan Disposition Patient Disposition: Admitted As Inpatient Condition: Fair Clinical Impressions Clinical Impression: Dizziness, Stroke-like symptom, Acute vestibular syndrome Discharge ED Provider: Esperanza Brito Adult HPI General Chief complaint: Weakness Stated complaint: Physician referral, High BP, Vomitting, Balance Time Seen by Provider: 07/29/22 09:44 History of Present Illness HPI narrative: 66-year-old male presenting to the emergency department with headache and balance issues. Symptom started yesterday while he was at [employer]. Was standing when he suddenly felt like he was leaning to the right. He almost fell, was able to catch himself. Since then he has had episodes of dizziness and feeling off balance. Symptoms are worse with standing and movement. Improved by sitting and rest. Has not noticed any change with head movement. No vision changes, blurry vision or double vision. He has had intermittent posterior headache that is described as sharp, like an ice pick. Located at the base of the head. Nonradiating. Does not have a headache at this time. Takes aspirin and Plavix for coronary artery disease. No medications for pain. No recent upper respiratory infection, ear infection, sinus trouble. Nothing like this is ever happened before. No history of TIA or stroke. No numbness, weakness, tingling in the arms or legs. No chest pain. Related Data Home Medications Medication Instructions Recorded Confirmed albuterol sulfate 90 mcg/actuation 2 puff inhalation Q4-6H PRN 06/08/20 07/29/22 aerosol inhaler (Ventolin HFA) breathing aspirin 81 mg tablet,delayed 81 mg PO DAILY heart 06/08/20 07/29/22 release (Adult Low Dose Aspirin) atorvastatin 40 mg tablet (Lipitor) 40 mg PO QHS Cholesterol 06/08/20 07/29/22 metformin 1,000 mg tablet 1,000 mg PO BID Diabetes 06/08/20 07/29/22 clopidogrel 75 mg tablet 75 mg PO DAILY Heart 07/29/22 07/29/22 isosorbide mononitrate 120 mg See Rx Instructions .Route 07/29/22 07/29/22 tablet,extended release 24 hr .COMPLEX High blood pressure losartan 25 mg tablet 25 mg PO DAILY heart 07/29/22 07/29/22 metoprolol succinate 50 mg 50 mg PO DAILY heart 07/29/22 07/29/22 tablet,extended release 24 hr pantoprazole 40 mg tablet,delayed 40 mg PO DAILY GERD 07/29/22 07/29/22 release ranolazine 500 mg tablet,extended 500 mg PO HS blood pressure 07/29/22 07/29/22 release,12 hr Allergies Allergy/AdvReac Type Severity Reaction Status Date / Time ibuprofen Allergy Intermediate I-ITCHING, Verified 01/08/21 09:59 SKIN TURNS RED Penicillins Allergy Intermediate I-RASH Verified 01/08/21 09:59 PFSH PFSH Medical History Abnormal EKG CAD (coronary artery disease) DM (diabetes mellitus) Dyspnea Ex-smoker HLD (hyperlipidemia) HTN (hypertension) Typical angina Surgical History Hx of CABG Social History (Updated 07/29/22 @ 18:43 by Nelia Dominguez RN) Smoking Status: Never smoker second hand exposure: No alcohol intake: never substance use type: denies use current occupational status: employed Travel in the last 8 weeks: None household members: spouse housing: house current occupational exposures/hazards: No caffeine: Yes ROS Obtained: Yes All systems reviewed & no additional complaints except as documented Constitutional Constitutional: Denies fatigue, Denies fever(s) and Reports headache(s) Eyes Eyes: Denies blind spots and Denies blurry vision ENT Ears, Nose, Mouth, and Throat: Reports disequilibrium, Reports dizziness, Reports headache(s) and Denies neck pain Cardiovascular Cardiovascular: Denies chest pain and Denies dyspnea Respiratory Respiratory: Denies cough and Denies dyspnea Gastrointestinal Gastrointestingal: Reports vomiting; Denies abdominal pain Musculoskeletal Musculoskeletal: Denies back pain, D
[2022-07-29 10:17] LABS: Chloride 99 mmol/L (98-107)
[2022-07-29 10:18] LABS: Sodium 138 mmol/L (136-145)
[2022-07-29 10:20] LABS: Alanine Aminotransferase 76 U/L (12-78); Alkaline Phosphatase 119 U/L (38-126); Aspartate Amino Transferase 79 U/L (17-59); Basophils % 0.3 % (0.1-2.0); Bilirubin,Total 2.2 mg/dl (0.2-1.3); Blood Urea Nitrogen 16 mg/dl (9-20); Eosinophils # 0.1 K/mm3 (0.0-0.4); Eosinophils % 1.2 % (0.1-12.0); Estimated Glomerular Filt Rate 84 ml/min (>60); GFR (African American) 102 ML/MIN (>60); Hematocrit 41.2 % (42.0-52.0); Hemoglobin 14.6 g/dL (14.1-18.0); Lymphocytes % 16.6 % (10-50); Mean Corpuscular HGB Conc 35.5 g/dL (31.8-35.4); Mean Corpuscular Hemoglobin 32.7 pg (27.0-31.2); Mean Corpuscular Volume 92.2 fl (80-94); Mean Platelet Volume 8.7 fl (7.4-10.4); Monocytes # 0.2 K/mm3 (0.1-1.0); Monocytes % 4.1 % (1.7-9.3); Neutrophils # 4.5 K/mm3 (1.8-7.8); Neutrophils % 77.8 % (37.0-80.0); Platelet Count 189 K/mm3 (142-424); Red Blood Count 4.46 M/mm3 (4.60-6.20); Red Cell Distribution Width 14.1 % (11.5-17.5); White Blood Count 5.8 K/mm3 (4.8-10.8)
[2022-07-29 10:21] LABS: Albumin Level 4.2 g/dl (3.5-5.0); Albumin/Globulin Ratio 1.6 (1.1-1.8); Calcium 9.3 mg/dl (8.4-10.2); Carbon Dioxide 31 mmol/L (22.0-30.0); Globulin 2.7 g/dL (1.3-3.2); Glucose 156 mg/dl (74-100); Total Protein,Serum 6.9 g/dl (6.3-8.2)
[2022-07-29 10:25] LABS: INR 0.98 (0.9-1.1); Prothrombin Time 10.6 seconds (10.1-12.5)
--- NOTE | 2022-07-29 10:53 | PC.NURSE ---
Pt back from CT
--- NOTE | 2022-07-29 11:31 | PC.NURSE ---
checked on pt at this time, at BS. Pt states no needs at this time. Call light within reach
--- NOTE | 2022-07-29 12:05 | PC.NURSE ---
contacted rad to check on status of CT readings, CTA head has preliminary report that rad staff staff will send down, states other 2 CT are up next to be read. notified ERNESTO LEI
--- NOTE | 2022-07-29 12:14 | PC.NURSE ---
updated pt we are starting receive CT results. Pt states no needs at this time.
--- NOTE | 2022-07-29 12:28 | PC.NURSE ---
speaking with Dr. Santos
--- NOTE | 2022-07-29 12:29 | MR_ITS ---
FINAL REPORT CLINICAL HISTORY: DIZZINESS, OFF BALANCE COMPARISON: Exam performed earlier today FINDINGS: Multiplanar MR imaging of the brain was performed without contrast. There is mild age-appropriate atrophy. There are scattered foci of increased T2 signal in the cerebral white matter that have a nonspecific appearance but likely represent mild chronic ischemic/gliotic changes. There is a 9 mm lacunar infarct in the left centrum semiovale. There is no evidence of intracranial hemorrhage or mass. No abnormal ventricular dilatation is identified. No abnormal extra-axial fluid collection is seen. No abnormality is seen on the diffusion weighted images. The posterior fossa and brainstem are unremarkable. Normal major vessel vascular flow voids are seen. IMPRESSION: Chronic findings with age-appropriate atrophy and mild chronic ischemic/gliotic changes. No acute intracranial abnormality. Reviewed, Interpreted and Dictated by David Graves III, MD Transcribed by Alicia Amos Authenticated and [facility]
--- NOTE | 2022-07-29 12:37 | PC.NURSE ---
ordered MRI. Rad advised pt could go up now. Pt and updated on POC
--- NOTE | 2022-07-29 12:39 | PC.NURSE ---
Joshua here to take pt to MRI. Pt and updated on POC at this time.
--- NOTE | 2022-07-29 14:57 | PC.NURSE ---
prelimary MRI report given to ERNESTO LEI at this time
--- NOTE | 2022-07-29 15:11 | PC.NURSE ---
spoke with Dr. Santos. Notified care management of admission MARION Ayala and Dr. Brito at bedside updating pty and on POC
--- NOTE | 2022-07-29 15:13 | PC.NURSE ---
covid swab sent to the lab at this time, called dietary for tray for pt ER MD to BS to go over POC and test results with pt.
[2022-07-29 15:29] LABS: Coronavirus 19, PCR Not Detected (NotDetected); Influenza A, PCR Not Detected (NotDetected); Influenza B, PCR Not Detected (NotDetected)
--- NOTE | 2022-07-29 15:43 | PC.NURSE ---
contacted warehouse administrative assistant to check on status of bed assignment. shelving supervisor states pt is getting assigned to room 209, states the room will have to be clean first another pt was just d/c form that room.
--- NOTE | 2022-07-29 15:54 | PC.NURSE ---
updated pt and family on bed assignment and that we are waiting on room to be cleaned
--- NOTE | 2022-07-29 17:20 | PC.NURSE ---
report called to myesha bardales rn on second floor at this time.
--- NOTE | 2022-07-29 17:31 | PC.NURSE ---
patient arrived by wheelchair from ED
[2022-07-29 17:58] LABS: POC Glucose,Bedside 243 (70-110)
--- NOTE | 2022-07-29 21:24 | EXP.HP ---
History of Present Illness *Admission Date: 07/29/22 *Reason for visit:: Dizziness, Headache, Balance issues *History of present illness: Mr. Thacker is a 66-year-old male with a past medical history that is positive for CAD s/p CABG x4, HTN, Hyperlipidemia, Diabetes Mellitus. He presents to [facility] due to dizziness, difficulty with balance and headaches. The patient reports that the issue with dizziness started approximately 1 month ago, but was extremely bad the day prior to presentation. In the ER the patient had multiple diagnostic testing that consisted of CT of the head without contrast, Head CTA, Neck CTA and MRI of the brain. All were basically unremarkable pertaining to the symptoms except MRI of the head. It showed a 9 mm Lacunar Infarct in the left centrum. [facility] Neuro[facility] team were contacted and no acute interventions were recommended. The patient was admitted with initial impression: Lacunar Infarct. His Plavix and Aspirin will be continued, blood pressure medications and control will be discussed. PT/OT and Speech have been consulted to see the patient. The plan of care was discussed with the patient in length and detail at bedside. The patient verbalized understanding and agreement with the plan of care. [facility] Medical History Abnormal EKG CAD (coronary artery disease) DM (diabetes mellitus) Dyspnea Ex-smoker HLD (hyperlipidemia) HTN (hypertension) Typical angina Surgical History Hx of CABG Social History Smoking Status: Never smoker second hand exposure: No alcohol intake: never substance use type: denies use current occupational status: employed Travel in the last 8 weeks: None household members: spouse housing: house current occupational exposures/hazards: No caffeine: Yes Review of Systems Review of Systems Review of systems:: pertinent systems reviewed and negative unless documented below Constitutional Constitutional: Reports headache(s) Eyes Eyes: Reports system reviewed and no additional complaints, except as documented ENT Ears, Nose, Mouth, and Throat: Reports disequilibrium, Reports dizziness and Reports headache(s) *Cardiovascular Cardiovascular: Reports system reviewed and no additional complaints, except as documented *Respiratory Respiratory: Reports system reviewed and no additional complaints, except as documented *Gastrointestinal Gastrointestinal: Reports system reviewed and no additional complaints, except as documented *Genitourinary Genitourinary: Reports system reviewed and no additional complaints, except as documented *Musculoskeletal Musculoskeletal: Reports system reviewed and no additional complaints, except as documented and Denies numbness Integumentary/Breasts Skin/Breast: Reports system reviewed and no additional complaints, except as documented *Neurologic Neurologic: Reports disequilibrium, Reports dizziness, Denies localized weakness, Reports headache(s) and Denies numbness Psychiatric Psychiatric: Reports system reviewed and no additional complaints, except as documented Endocrine Endocrine: Reports system reviewed and no additional complaints, except as documented Hematologic/Lymphatic Hematologic/Lymphatic: Reports system reviewed and no additional complaints, except as documented Allergic/Immunologic Allergic/Immunologic: Reports system reviewed and no additional complaints, except as documented Meds Home Medications and Allergies Home Medications Medication Instructions Recorded Confirmed Type albuterol sulfate 90 mcg/actuation 2 puff inhalation Q4-6H PRN 06/08/20 07/29/22 History aerosol inhaler (Ventolin HFA) breathing aspirin 81 mg tablet,delayed 81 mg PO DAILY heart 06/08/20 07/29/22 History release (Adult Low Dose Aspirin) atorvastatin 40 mg tablet
[2022-07-29 22:09] LABS: POC Glucose,Bedside 169 (70-110)
[2022-07-30 04:00] VITALS: BP 151/81; PULSE 67; RESP 18; TEMP 36.6; O2SAT 95
--- NOTE | 2022-07-30 05:24 | PC.NURSE ---
Pt has not voiced any c/o to staff. Pt AOx4. Pt has been ambulating to BR with 1 person assist. Tolerating well. Pt states he is getting around better today compared to yesterday. Bed alarm on for pt safety. Call light within reach.
[2022-07-30 06:35] LABS: Basophils % 0.6 % (0.1-2.0); Eosinophils # 0.1 K/mm3 (0.0-0.4); Eosinophils % 1.7 % (0.1-12.0); Hematocrit 44.1 % (42.0-52.0); Hemoglobin 14.6 g/dL (14.1-18.0); Lymphocytes # 1.3 K/mm3 (0.7-4.5); Lymphocytes % 20.8 % (10-50); Mean Corpuscular Hemoglobin 30.3 pg (27.0-31.2); Mean Corpuscular Volume 91.7 fl (80-94); Mean Platelet Volume 8.8 fl (7.4-10.4); Monocytes # 0.4 K/mm3 (0.1-1.0); Monocytes % 5.8 % (1.7-9.3); Neutrophils # 4.4 K/mm3 (1.8-7.8); Platelet Count 182 K/mm3 (142-424); Red Blood Count 4.81 M/mm3 (4.60-6.20); Red Cell Distribution Width 14.1 % (11.5-17.5); White Blood Count 6.1 K/mm3 (4.8-10.8)
[2022-07-30 06:37] LABS: Alanine Aminotransferase 88 U/L (12-78); Albumin Level 4.1 g/dl (3.5-5.0); Albumin/Globulin Ratio 1.5 (1.1-1.8); Alkaline Phosphatase 115 U/L (38-126); Anion Gap 12.9 mEq/L (5-15); Aspartate Amino Transferase 89 U/L (17-59); Blood Urea Nitrogen 14 mg/dl (9-20); Calcium 9.3 mg/dl (8.4-10.2); Carbon Dioxide 30 mmol/L (22.0-30.0); Chloride 100 mmol/L (98-107); Chol/HDL Ratio 5.4 (1-3.5); Cholesterol 134 mg/dl (140-200); Creatinine Clearance Estimated 94 mL/min (50-200); Estimated Glomerular Filt Rate 75 ml/min (>60); GFR (African American) 90 ML/MIN (>60); Globulin 2.7 g/dL (1.3-3.2); Glucose 142 mg/dl (74-100); HDL Cholesterol 25 mg/dl (40-60); Magnesium 1.9 mg/dl (1.6-2.3); Potassium 3.9 mmoL/L (3.5-5.1); Sodium 139 mmol/L (136-145); Total Protein,Serum 6.8 g/dl (6.3-8.2); Triglycerides 115 mg/dl (30-150); VLDL Cholesterol 23 mg/dL (0-40)
[2022-07-30 06:40] LABS: POC Glucose,Bedside 130 (70-110)
[2022-07-30 06:48] LABS: Direct LDL Cholesterol 83.13 mg/dL (100-129)
--- NOTE | 2022-07-30 07:31 | HMH.PHAINT1 ---
Pharmacy Intervention Comments: Medication reconciliation completed via external fill history and patient interview. -Triny Belle, PharmD Candidate 2022
[2022-07-30 07:37] VITALS: BMI 29.7
[2022-07-30 07:50] VITALS: BMI 29.5
[2022-07-30 08:00] VITALS: BP 153/96; PULSE 71; RESP 15; TEMP 36.4; O2SAT 97
--- NOTE | 2022-07-30 11:09 | HMH.OTEV ---
OT Inpatient Evaluation Rehab OT IP Evaluation Start: 07/29/22 15:40 Freq: ONCE Status: Complete Protocol: Document 07/30/22 10:55 KINDRA (Rec: 07/30/22 11:09 KINDRA [id number]) Rehab OT IP Assessment Subjective History Mr. Thacker is a 66-year-old male with a past medical history that is positive for CAD s/p CABG x4, HTN, Hyperlipidemia, Diabetes Mellitus. He presents to [facility] due to dizziness, difficulty with balance and headaches. The patient reports that the issue with dizziness started approximately 1 month ago, but was extremely bad the day prior to presentation. In the ER the patient had multiple diagnostic testing that consisted of CT of the head without contrast, Head CTA, Neck CTA and MRI of the brain. All were basically unremarkable pertaining to the symptoms except MRI of the head. It showed a 9 mm Lacunar Infarct in the left centrum. [facility] Neuro[facility] team were contacted and no acute interventions were recommended . The patient was admitted with initial impression: Lacunar Infarct. His Plavix and Aspirin will be continued, blood pressure medications and control will be discussed. PT/OT and Speech have been consulted to see the patient. The plan of care was discussed with the patient in length and detail at bedside. The patient verbalized understanding and agreement with the plan of care. Abnormal EKG CAD (coronary artery disease) DM (diabetes mellitus) Dyspnea
--- NOTE | 2022-07-30 11:29 | HMH.PTEV ---
Physical Therapy Evaluation Rehab PT IP Evaluation Start: 07/29/22 15:40 Freq: ONCE Status: Active Protocol: Document 07/30/22 11:24 SUDHEER (Rec: 07/30/22 11:29 SUDHEER [id number]) Subjective/History History History Mr. Thacker is a 66-year-old male with a past medical history that is positive for CAD s/p CABG x4, HTN, Hyperlipidemia, Diabetes Mellitus. He presents to [facility] due to dizziness, difficulty with balance and headaches. The patient reports that the issue with dizziness started approximately 1 month ago, but was extremely bad the day prior to presentation. Copied from ER H&P Subjective Subjective Pt has c/o dizziness w/ change in position - pt and spouse report this has been intermittant for over a year. Rehab PT IP Eval Objective Appearance Patient Behavior Appropriate,Cooperative Patient Orientation Place,Time,Name,Birthday,Year, Situation Difficulty following instructions none Speech Pattern Clear,Appropriate Ambulation Patient Able to Ambulate Yes Ambulation Observation IP General Gait Pattern Observation Wide Based Gait Ambulation Distance (feet) 70 Ambulation Assistive Device None Ambulation Ability Supervision/Stand by Balance Ability to Arise Able, uses arms to help Sitting Balance Steady, safe Standing Balance Steady, wide stance Dynamic Sitting Balance Ability Normal Dynamic Standing Balance Ability Fair Transfers Bed Transfer Ability Independent Chair Transfer Ability Independent Sit to Stand Bed Transfer Ability Independent Sit to Stand Chair Transfer Ability Independent Rehab PT IP prob,goals,plan Problems Date of Evaluation: 07/30/22 Rehab Potential Rehab Potential Innapropriate for Skilled Therapy Plan PT Intervention Plan Other Other Intervention Plan OP PT vestibular rehab Discharge Plan PT Discharge Plan Pt safe to return home w/ spouse - pt would benefit from neurology consult and OPPT vestibular rehab G -code Required Yes Eval Compl
[2022-07-30 12:03] LABS: POC Glucose,Bedside 194 (70-110)
--- NOTE | 2022-07-30 13:55 | HMH.SLDYSPHA ---
Speech & Language Evaluation Speech/Language Dysphagia Evaluation Start: 07/30/22 13:48 Freq: ONCE Status: Active Protocol: Document 07/30/22 13:48 ROMARIO (Rec: 07/30/22 13:54 ROMARIO [id number]) Dysphagia Assess/Goals/Plan Assessment Date of Evaluation: 07/30/22 Evaluation Type Initial Certification Assessment/Problems Pt assessed sitting upright in chair for a clinical bedside swallow evaluation 2' stroke protocol per MD order. Does Patient Qualify for Service No Qualify/Failure Comment Based on assessment results, skilled speech therapy services are not warranted at this time as no overt s/sxs were observed during CSE. Recommendations PHYSICIAN CERTIFICATION: The specified therapy services are required, authorized, and reviewed every 30 days. Diet Recommendations Normal Liquid Type Recommendations Normal/Thin SL Swallow Guidelines Standard Aspiration Prec. Dysphagia Swallow Precautions/Strategies Sitting Upright (90 deg) Plan Pt/Guardian verbally ack understanding Yes of dx/prognosis/goals G -code Required No Education Instructions provided Assessment results and ability to continue with normal diet was discussed with , pt, nurse & care management all of which expressed understanding . Pt/Caregiver able to recall information Able to recall/restate Reinforcement needed No Speech & Language HPI History Present Illness Description of Patient Problem Per ER report, Mr. Thacker is a 66-year-old male with a past medical history that is positive for CAD s/p CABG x4, HTN, Hyperlipidemia, Diabetes Mellitus. In the ER the patient had multiple diagnostic testing that consisted of CT of the head without contrast, Head CTA, Neck CTA and MRI of the brain. All were basically unremarkable pertaining to the symptoms except MRI of the head. It showed a 9 mm Lacunar Infarct in the left centrum. Pt/Caregiver Concerns Per stroke protocol, swallowing was assessed at the
--- NOTE | 2022-07-30 14:14 | EXP.DC.SUM ---
General Admission date:: 07/29/22 Discharge date: 07/30/22 HPI HPI HPI: Mr. Thacker is a 66-year-old male with a past medical history that is positive for CAD s/p CABG x4, HTN, Hyperlipidemia, Diabetes Mellitus. He presents to [facility] due to dizziness, difficulty with balance and headaches. The patient reports that the issue with dizziness started approximately 1 month ago, but was extremely bad the day prior to presentation. In the ER the patient had multiple diagnostic testing that consisted of CT of the head without contrast, Head CTA, Neck CTA and MRI of the brain. All were basically unremarkable pertaining to the symptoms except MRI of the head. It showed a 9 mm Lacunar Infarct in the left centrum. Neurostroke team were contacted and no acute interventions were recommended. The patient was admitted with initial impression: Lacunar Infarct. His Plavix and Aspirin will be continued, blood pressure medications and control will be discussed. PT/OT and Speech have been consulted to see the patient. The plan of care was discussed with the patient in length and detail at bedside. The patient verbalized understanding and agreement with the plan of care. Hospital Course Hospital Course Hospital Course: evaluation in emergency department with CT head, CTA, neck CTA, and MRI was performed. MRI demonstrated 9 mm lacunar infarct in the left centrum. neurosurgery team was contacted and no acute interventions were recommended. Patient was admitted overnight and monitored had clinical improvement. Patient was restarted on home medications and had improvement in symptoms. Physical therapy evaluated the patient and recommended outpatient therapy and rolling walker. Patient was scheduled for follow-up with neurology service on outpatient basis. Increased losartan to 50mg given elevated BP. Exam Data for Last 24 hours Vital signs and Labs for Last 24 Hours: Temp Pulse Resp BP Pulse Ox 97.6 F 71 15 153/96 H 97 07/30/22 08:00 07/30/22 08:00 07/30/22 08:00 07/30/22 08:00 07/30/22 08:00 Laboratory Results - last 24 hr 07/29/22 15:09: SARS-CoV-2 (PCR) Not detected, Influenza A Untype (PCR) Not detected, Influenza Type B (PCR) Not detected 07/29/22 17:50: POC Glucose 243 H 07/29/22 22:01: POC Glucose 169 H 07/30/22 05:29: POC Glucose 130 H 07/30/22 05:57: WBC 6.1, RBC 4.81, Hgb 14.6, Hct 44.1, MCV 91.7, MCH 30.3, MCHC 33.0, RDW 14.1, Plt Count 182, MPV 8.8, Neut % (Auto) 71.0, Lymph % (Auto) 20.8, [place] % (Auto) 5.8, Eos % (Auto) 1.7, Baso % (Auto) 0.6, Neut # (Auto) 4.4, Lymph # (Auto) 1.3, [place] # (Auto) 0.4, Eos # (Auto) 0.1, Baso # (Auto) 0.0 07/30/22 05:57: Sodium 139, Potassium 3.9, Chloride 100, Carbon Dioxide 30, Anion Gap 12.9, BUN 14, Creatinine 1.00, Estimated Creat Clear 94, Estimated GFR 75, Est GFR ( Amer) 90, Glucose 142 H, Calcium 9.3, Magnesium 1.9, Total Bilirubin 2.0 H, AST 89 H, ALT 88 H, Alkaline Phosphatase 115, Total Protein 6.8, Albumin 4.1, Globulin 2.7, Albumin/Globulin Ratio 1.5, Triglycerides 115, Cholesterol 134 L, LDL Cholesterol Direct 83.13 L, VLDL Cholesterol 23, HDL Cholesterol 25 L, Cholesterol/HDL Ratio 5.4 H 07/30/22 11:53: POC Glucose 194 H I & O for Last 24 hours: Intake & Output 07/27/22 07/28/22 07/29/22 07/30/22 23:59 23:59 23:59 23:59 Intake Total 120 / 120 780 / 780 Output Total 200 / 200 200 / 200 Balance -80 / -80 580 / 580 Weight 91.427 kg 90.407 kg Constitutional Constitutional: no acute distress *Routine Respiratory Exam Respiratory: Present CTA bilaterally and symmetric chest movement; Absent accessory muscle use *Routine Cardiovascular Exam Cardiovascular: Present RRR, Normal S1 and Normal S2; Absent murmur or gallop *Routine Extremities Exam Extremities: Present normal capillary refill *Routine Neurological Exam Neurological: Present alert, oriented X3, CN II-XII intact, moving all extremities, normal tone, normal speech a
--- NOTE | 2022-07-30 14:42 | P.CONPHA_ITS ---
Pharmacy Intervention Comments: Discharge counseling completed at bedside with patient and daughter. Discussed continued medications and any changes to home medication regimen (increased losartan to 50 mg daily). Discussed possible side effects with medication change and patient and daughter verbalize understanding. Patient wishes to see cardiology at [facility] moving forward, made medical team aware.
--- NOTE | 2022-07-30 15:34 | CARE MANAGER ---
Patient requested rolling walker for home use, order and demographics faxed to [facility].
--- NOTE | 2022-07-31 16:04 | CARE MANAGER ---
Spoke with patient for post-discharge phone interview, she states that patient is dong well and has no issues at this time.
== END 2022-07-30 15:17 | disposition home health service (06) | DRG 66 ==
LOC: ER 12:24 → 2ND 15:55
PROVIDERS: Internal Medicine Adolescent Medicine; Admitting Provider Student in an Organized Health Care Education/Training Program; Emergency Provider Emergency Medicine; PCP Internal Medicine Adolescent Medicine; Visit Provider Student in an Organized Health Care Education/Training Program
DX: I63.81 Other cerebral infarction due to occlusion or stenosis of small artery (principal); I10 Essential (primary) hypertension; E78.5 Hyperlipidemia, unspecified; E11.9 Type 2 diabetes mellitus without complications; Z87.891 Personal history of nicotine dependence; Z95.1 Presence of aortocoronary bypass graft; Z79.84 Long term (current) use of oral hypoglycemic drugs; I25.118 Atherosclerotic heart disease of native coronary artery with other forms of angina pectoris
CPT/HCPCS: 36415; 70450; 70496; 70498; 70551; 71045; 80053; 80061; 82962; 83735; 85025; 85610; 92610; 93005; 97163; 97165; 97530; 99285; C9803; Q9967; U0003; U0005

== ENCOUNTER → 2022-08-29 07:40 | Outpatient (CLI) | payer MEDICARE, SELFPAY ==
[2022-08-29 09:26] LABS: Hemoglobin A1C 7.1 % (4.0-6.0)
[2022-08-29 09:30] LABS: Erythrocyte Sedimentation Rate 13 mm/hr (0-20)
[2022-08-29 09:32] LABS: Chol/HDL Ratio 4.3 (1-3.5); Cholesterol 126 mg/dl (140-200); HDL Cholesterol 29 mg/dl (40-60); Triglycerides 105 mg/dl (30-150); VLDL Cholesterol 21 mg/dL (0-40)
[2022-08-29 09:43] LABS: C-Reactive Protein 0.8 mg/L (0-4); Direct LDL Cholesterol 76.05 mg/dL (100-129)
[2022-08-29 10:04] LABS: Thyroid Stimulating Hormone 2.05 uIU/mL (0.465-4.68)
[2022-08-29 10:39] LABS: Vitamin B12 380 pg/mL (239-931)
== END ==
PROVIDERS: PCP Internal Medicine Adolescent Medicine; Visit Provider Specialist
DX: E11.9 Type 2 diabetes mellitus without complications (principal); R51.9 Headache, unspecified; Z87.39 Personal history of other diseases of the musculoskeletal system and connective tissue; I63.9 Cerebral infarction, unspecified; Z92.25 Personal history of immunosuppression therapy; H93.19 Tinnitus, unspecified ear; I10 Essential (primary) hypertension; Z79.84 Long term (current) use of oral hypoglycemic drugs
CPT/HCPCS: 36415; 80061; 82607; 82746; 83036; 84443; 85651; 86140

== ENCOUNTER → 2022-09-02 10:31 | Outpatient (CLI) | payer MEDICARE, SELFPAY ==
--- NOTE | 2022-09-02 10:31 | MR_ITS ---
FINAL REPORT CLINICAL HISTORY: Dizziness, hearing loss, tinnitus, headache new onset FINDINGS: Multiple projection images of the brain venous vasculature was performed without contrast. The raw data images were also reviewed. A portion of the posterior superior sagittal sinus is partially visualized which is felt to be technical. There is a partially duplicated posterior superior sagittal sinus favored to represent a normal variation. The remaining major venous sinuses appear patent without evidence of occlusion. IMPRESSION: No evidence of venous sinus thrombosis. Reviewed, Interpreted and Dictated by David Graves III, MD Transcribed by Emilio Sevilla Authenticated and [facility]
== END ==
PROVIDERS: PCP Internal Medicine Adolescent Medicine; Visit Provider Specialist
DX: Z86.718 Personal history of other venous thrombosis and embolism; I63.81 Other cerebral infarction due to occlusion or stenosis of small artery
CPT/HCPCS: 70544

== ENCOUNTER 2022-09-05 08:00 | Outpatient (RCR) | payer MEDICARE, SELFPAY ==
--- NOTE | 2022-08-05 10:46 | HMH.PTOPEV ---
PT Outpatient Evaluation Rehab PT Outpatient Evaluation Start: 08/05/22 08:22 Freq: Status: Active Protocol: Document 08/05/22 08:22 CHRISTINE (Rec: 08/05/22 10:43 CHRISTINE [id number]) E-signed By Trina Lala, PT Outpatient Therapy Subjective History Subjective History Pt is a 66 y/o male who reports onset of dizziness and difficulty with balance 6mo-1 year ago. Pt reports recent worsening of symptoms and headaches a little over a month ago. Pt was recently admitted to [facility] on 07/29 for above complaints. Pt underwent multiple imaging modalities including head CT, neck CTA and MRI of the brain with a 9 mm lacunar infarct found. Per MD note, [facility] neurostroke team was contacted and did not recommend acute treatment. Pt reports they increased his BP medication dosage from 25 to 50mg but otherwise denies changes in medication. Pt reports symptoms occur with change in position such as going from laying to sitting or sitting to standing as well as with bending over. Pt reports when he walks he feels that he is pulled to one side and just keeps going that way , denies falls. Pt reports objects around him often feel swimmy as well. Pt also reports constant ringing in both ears that have affected his hearing which began recently prior to hospitalization. Pt reports since he has been home he has had 4 bouts of nausea/vomiting that have occurred either while sitting still or laying down. Pt's reports she has been checking his blood pressure 3-4x/day and noticed that it fluctuates, states with bout of n/v systolic BP
--- NOTE | 2022-09-05 08:55 | HMH.RHREAS ---
Rehab Reassessment Rehab OP Re-assessment Start: 09/05/22 07:55 Freq: Status: Active Protocol: Document 09/05/22 07:55 CHRISTINE (Rec: 09/05/22 08:55 CHRISTINE [id number]) E-signed By Trina Lala PT Rehab Re-assessment Subjective Subjective Pt denies any dizziness or pulling sensation to the right in the last week. Pt reports he feels 100% improved since starting PT in regards to balance. Pt does continue to report constant ringing in his ears and some head pain but states it is not as severe as before. Objective Objective Notes LE MMT: / grossly DGI: 23 Balance:able to perform tandem stance firm surface EO & EC 30 without LOB; able to perform FT EC & EO on unstable surface 30 without LOB Assessment Progress Assessment Progressing as Expected Assessment Notes Pt has attended 7 PT visits consisting of aerobic exercise , functional LE strengthening, and balance/proprioception training with good tolerance. Pt demonstrated improved LE strength, balance/ proprioception, and DGI score this date. Pt met all PT goals and is appropriate to discharge to independent [facility]. Patient goals met ST/4 LT/8 Goals Not Met n/a Revised Goals n/a Plan Plan D/c to independent [facility], pt has vestibular evaluation scheduled on Friday09/09/21 Frequency of Therapy 0 Duration of therapy 0 Time and Billing Re-Eval Time 8 Re-Eval Billing Units 1 PHYSICIAN CERTIFICATION: I certify the specified therapy services for Camacho Thacker are required, authorized, and reviewed every 30 days.
== END 2022-09-05 08:05 | disposition home or self-care (01) ==
LOC: PT 08:00
PROVIDERS: PCP Internal Medicine Adolescent Medicine; Visit Provider Internal Medicine
DX: I63.81 Other cerebral infarction due to occlusion or stenosis of small artery (principal)
CPT/HCPCS: 97110; 97112; 97163; 97164; 97530

== ENCOUNTER 2022-09-23 08:00 | Outpatient (RCR) | payer MEDICARE, SELFPAY ==
--- NOTE | 2022-09-09 13:12 | HMH.PTOPEV ---
PT Outpatient Evaluation Rehab PT Outpatient Evaluation Start: 09/09/22 10:28 Freq: Status: Active Protocol: Document 09/09/22 12:59 PHORNE (Rec: 09/09/22 13:12 PHORNE [id number]) E-signed By Cuba Noonan, PT Outpatient Therapy Subjective History Subjective History This is the initial PT eval for Camacho Thacker 67 yowm who presents with c/o intermittent feelings of dizziness and tinnitus in B ears. He has hx of Acute vs Chronic L Lacunar CVA ~ 1.5 mos ago. He initially had difficulty maintianing upright posture as he drifted to the right side when I was sitting or alking. He reports most issues have all resolved, but the tinnitus remains problematic. He has Hx of HTN, CAD, DVT, DM-II. Currently finger rub test positive for decreased hearing on the L side only despite c/o buzzing in B ears. All occulomotor testing appears stable and WNL B. No balance deficit noted this date. Chief Complaint Other Symptoms Relieved By Nothing Prior Functional Limitations None Current Functional Limitations Recreation Activity Symptom Description Intermittent Balance Eval Gait/Posture Asssessment General Gait Observation No Deviations/Normal Nystagmus Nystagmus Presence None Timed Up and Go Test 1. Is the Timed Up and Go test result > no or = to 12 seconds? 3. Is the Timed Up and Go Test result < yes 12 seconds? Oculomotor Gaze Oculomotor Gaze Nml: Vergence Smooth Pursuit Saccades VOR Cancellation Cover/Uncover Cross Cover [place] Feet Together/Eyes open/Stable Surface pass Feet Together/Eyes Closed/Stable Surface pass Feet Together/Eyes open/Unstable Surface pass Feet Together/Eyes Closed/Unstable pass Surface Outpatient Therapy Assessment Impairments Problems/Impairmments Impaired Recreational Activities,Impaired Self Care/ Self Management Prognosis Rehab Potential
== END 2022-09-23 08:05 | disposition home or self-care (01) ==
LOC: PT 08:00
PROVIDERS: PCP Internal Medicine Adolescent Medicine; Visit Provider Specialist
DX: H81.90 Unspecified disorder of vestibular function, unspecified ear (principal)
CPT/HCPCS: 97163

== ENCOUNTER → 2023-08-26 06:52 | Outpatient (CLI) | payer MEDICARE, SELFPAY ==
--- NOTE | 2023-08-26 06:54 | CT_ITS ---
FINAL REPORT CLINICAL HISTORY: PERSONAL HISTORY OF NICOTINE DEPENDENCE FORMER SMOKER, QUIT 15 YEARS AGO 2 PPD X40 YEARS COMPARISON: None FINDINGS: CT CHEST LOW DOSE SCREENING HISTORY: Screening exam for lung cancer. 67-year-old male, former smoker, quit 15 years ago, 80 pack year smoking history DOSE: CTDIvol: 2.9 mGy, DLP: 103.68 mGy*cm COMPARISON: None . TECHNIQUE: Axial CT without IV contrast administration using low dose protocol FINDINGS: There is a nodule immediately adjacent to the superior aspect of the right major fissure measuring 5 mm in size. There is a second nodule in the medial right lower lobe best seen on image #42 of sequence four. There is a ill-defined groundglass opacity in the superior right lower lobe, that measures 11 mm in diameter. Median sternotomy wires are present. There are moderate coronary artery calcifications present. No pleural or pericardial effusion is seen . No adenopathy or mass lesion is present . The gallbladder is surgically absent. There is an incompletely visualized right renal cyst measuring approximately 10 cm in diameter. IMPRESSION: 2 focal nodules and a groundglass opacity are identified in the right lung as described above. There is an incompletely visualized 10 cm renal cyst in the right kidney. Moderate coronary artery calcifications are present. LUNG RADS CATEGORY 2 RECOMMENDATION: 12 month LDCT follow up Reviewed, Interpreted and Dictated by Richie Mar MD Transcribed by Kenya Broussard Authenticated and [facility]
--- NOTE | 2023-08-26 06:55 | US_ITS ---
FINAL REPORT CLINICAL HISTORY: ATHEROSCLEROTIC HEART DISEASE COMPARISON: None FINDINGS: Sonographic images were obtained of the abdominal aorta. The abdominal aorta measures up to 1.7 cm in greatest dimensions. The common iliac arteries are within normal limits. IMPRESSION: No evidence of aortic aneurysm. Reviewed, Interpreted and Dictated by Richie Mar MD Transcribed by Kenya Broussard Authenticated and [facility]
== END ==
PROVIDERS: PCP Internal Medicine Adolescent Medicine; Visit Provider Internal Medicine Adolescent Medicine
DX: Z87.891 Personal history of nicotine dependence (principal); I25.10 Atherosclerotic heart disease of native coronary artery without angina pectoris
CPT/HCPCS: 71271; 76770

== ENCOUNTER 2023-10-07 10:39 | Outpatient (POV) | payer MEDICARE, SELFPAY | END 2023-10-07 23:59 | disposition home or self-care (01) | LOC: SC 10:39 | PROVIDERS: PCP Internal Medicine Adolescent Medicine; Visit Provider Dermatology | DX: Z00.00 Encounter for general adult medical examination without abnormal findings (principal) ==